=== PATIENT | male | born 1960 | race Hispanic/Latino ===

== ENCOUNTER 2024-01-19 12:02 | Emergency (ER) | payer BC ==
[~2024-01-19] VITALS: Ht 167.6 cm; Wt 72.6 kg
[2024-01-19] MEDS ORDERED: HYDRALAZINE 20MG/ML VIAL IV ONE (12:30)
[2024-01-19 13:25] LABS: BASOPHILS # (AUTO) 0.03 K/uL (0.00-0.20); BASOPHILS % (AUTO) 0.9 % (0.0-5.0); EOSINOPHILS # (AUTO) 0.09 K/uL (0.00-0.70); EOSINOPHILS % (AUTO) 2.8 % (0.0-8.0); IMMATURE GRANULOCYTE ABSOLUTE 0.01 K/uL (0-1); LYMPHOCYTES # (AUTO) 1.7 K/uL (1.0-4.8); LYMPHOCYTES % (AUTO) 54.1 % (21.0-51.0); MEAN CORPUSCULAR HEMOGLOBIN 32.2 pg (27.0-33.0); MEAN CORPUSCULAR HGB CONC 33.9 g/dL (32.0-36.0); MEAN CORPUSCULAR VOLUME 94.8 fL (79-99); MONOCYTES # (AUTO) 0.4 K/uL (0.1-1.0); MONOCYTES % (AUTO) 11.9 % (3.0-13.0); PLATELET COUNT (AUTO) 75 K/uL (130-400); RED BLOOD CELL COUNT(AUTO) 3.48 MIL/uL (4.50-6.20); RED CELL DISTRIBUTION WIDTH 15.9 % (11.0-15.5); WHITE BLOOD COUNT (AUTO) 3.2 K/uL (4.8-10.8)
[2024-01-19 13:27] LABS: CREATININE 0.7 mg/dL (0.5-1.3); POTASSIUM 3.9 mmol/L (3.5-5.1)
[2024-01-19 13:31] LABS: INR 1.32 (0.85-1.15)
[2024-01-19 13:32] LABS: PARTIAL THROMBOPLASTIN TIME 28.2 SEC (26.3-35.5)
[2024-01-19 15:57] VITALS: BP 110/74; PULSE 80; RESP 16; O2SAT 97
== END 2024-01-19 16:03 | disposition home or self-care (01) ==
LOC: EDH 12:02
DX: I10 Essential (primary) hypertension (principal); I11.0 Hypertensive heart disease with heart failure; I50.9 Heart failure, unspecified; E11.9 Type 2 diabetes mellitus without complications; Z90.49 Acquired absence of other specified parts of digestive tract
CPT/HCPCS: 36415; 80048; 84484; 85025; 85610; 85730; 93005